=== PATIENT | female | born 1930 | race Caucasian/White ===

== ENCOUNTER 2018-10-19 16:38 | Inpatient (IN) ==
[2018-10-19] MEDS ORDERED: NS 1000 ML 1,000 ML IV SCH (19:51)
[2018-10-19 20:06] VITALS: BMI 32.2
[2018-10-19 20:21] LABS: BASOPHILS # (AUTO) 0.1 X10^3/uL (0.0-0.1); BASOPHILS % (AUTO) 0.9 % (0.2-1.0); EOSINOPHILS # (AUTO) 0.2 x10^3/uL (0.0-0.2); EOSINOPHILS % (AUTO) 2.5 % (0.9-2.9); HEMATOCRIT 30.1 % (36.0-47.0); HEMOGLOBIN 10.1 g/dL (12.0-16.0); LYMPHOCYTES # (AUTO) 1.6 X10^3/uL (1.3-2.9); LYMPHOCYTES % (AUTO) 23.8 % (21.0-51.0); MEAN CORPUSCULAR HEMOGLOBIN 31.5 pg (27.0-34.0); MEAN CORPUSCULAR HGB CONC 33.8 g/dL (33.0-35.0); MEAN CORPUSCULAR VOLUME 93.2 fL (80.0-100.0); MEAN PLATELET VOLUME 7.5 fL (7.4-11.0); MONOCYTES # (AUTO) 0.6 x10^3/uL (0.3-0.8); NEUTROPHILS # (AUTO) 4.3 x10^3/uL (2.2-4.8); NEUTROPHILS % (AUTO) 63.8 % (42.0-75.0); PLATELET COUNT 246 X10^3/uL (150.0-450.0); RED BLOOD COUNT 3.22 X10^6/uL (3.5-5.4); RED CELL DISTRIBUTION WIDTH 14.1 % (11.6-16.5); WHITE BLOOD COUNT 6.7 X10^3/uL (3.6-10.0)
[2018-10-19] MEDS: ROCEPHIN VIAL 1 GRAM IVP SCH (20:21)
[2018-10-19 20:35] LABS: ALANINE AMINOTRANSFERASE 19 Units/L (12-78); ALKALINE PHOSPHATASE 67 Units/L (46-116); ASPARTATE AMINO TRANSFERASE 17 Units/L (15-37); BLOOD UREA NITROGEN 16 mg/dL (7-18); CALCIUM 7.8 mg/dL (8.5-10.1); CARBON DIOXIDE 29.6 mmol/L (21-32); CHLORIDE 106 mmol/L (98-107); COR CA(FOR HYPOALB) 8.6 mg/dL (8.5-10.1); COR NA(FOR HYPERGLY) 142 mmol/L (136-145); CREATININE 0.91 mg/dL (0.55-1.02); SODIUM 142 mmol/L (136-145); TOTAL PROTEIN 5.8 g/dL (6.4-8.2); eGFR NON BLACK RACES > 60 (>60)
[2018-10-19] MEDS ORDERED: K-DUR TAB 20 MEQ PO PRN (21:04)
[2018-10-19] MEDS ORDERED: KLOR-CON PO PRN (21:04)
[2018-10-19] MEDS ORDERED: POTASSIUM CHL 40 MEQ/NS 0.45% 500 ML IV PRN (21:04)
[2018-10-19] MEDS ORDERED: K-RIDER 10 MEQ/NS 100 ML 10 MEQ/100 ML BAG IV PRN (21:04)
[2018-10-19] MEDS ORDERED: POTASSIUM CHL 60 MEQ/NS 0.45% 500 ML IV PRN (21:04)
[2018-10-19] MEDS ORDERED: MAGNESIUM SULFATE 1 GRAM/100 mL PREMIX 1 GM/100 ML BAG IV PRN (21:04)
[2018-10-19] MEDS ORDERED: MICRO K EXTEN CAP 10 MEQ PO PRN (21:04)
[2018-10-19] MEDS ORDERED: LEXAPRO ONE (22:31)
[2018-10-19] MEDS: LEXAPRO PO SCH (22:34)
[2018-10-19] MEDS: ARICEPT TAB 10 MG PO SCH (22:34)
[2018-10-19] MEDS: TUMS PO SCH (22:35)
[2018-10-19] MEDS: NAMENDA TAB 10 MG PO SCH (22:35)
[2018-10-19 23:47] LABS: BILIRUBIN,URINE NEGATIVE (NEGATIVE); BLOOD/HEMOGLOBIN,URINE NEGATIVE (NEGATIVE); GLUCOSE, URINE NEGATIVE (NEGATIVE); KETONES,URINE NEGATIVE (NEGATIVE); LEUKOCYTE ESTERASE ,URINE 1+ (NEGATIVE); NITRITES,URINE NEGATIVE (NEGATIVE); PROTEIN,URINE NEGATIVE (NEGATIVE); UROBILINOGEN,URINE NORMAL (NORMAL)
[2018-10-19 23:51] LABS: AMORPHOUS SEDIMENT,UR 1+ /HPF (NEGATIVE); APPEARANCE,URINE CLEAR (CLEAR); BACTERIA,URINE NEGATIVE /HPF (NEGATIVE); COLOR,URINE PALE YELLOW (YELLOW); RBC,URINE NONE SEEN /HPF (NONE SEEN); SQUAMOUS EPITHELIAL CELL,UR RARE /HPF (NEGATIVE)
[2018-10-20 05:53] LABS: BASOPHILS # (AUTO) 0.1 X10^3/uL (0.0-0.1); BASOPHILS % (AUTO) 1.4 % (0.2-1.0); EOSINOPHILS # (AUTO) 0.2 x10^3/uL (0.0-0.2); EOSINOPHILS % (AUTO) 3.3 % (0.9-2.9); HEMATOCRIT 29.8 % (36.0-47.0); HEMOGLOBIN 10.2 g/dL (12.0-16.0); LYMPHOCYTES # (AUTO) 1.8 X10^3/uL (1.3-2.9); LYMPHOCYTES % (AUTO) 27.7 % (21.0-51.0); MEAN CORPUSCULAR HEMOGLOBIN 31.7 pg (27.0-34.0); MEAN CORPUSCULAR HGB CONC 34.3 g/dL (33.0-35.0); MEAN CORPUSCULAR VOLUME 92.3 fL (80.0-100.0); MEAN PLATELET VOLUME 7.7 fL (7.4-11.0); MONOCYTES # (AUTO) 0.6 x10^3/uL (0.3-0.8); MONOCYTES % (AUTO) 10.1 % (0.0-13.0); NEUTROPHILS # (AUTO) 3.7 x10^3/uL (2.2-4.8); NEUTROPHILS % (AUTO) 57.5 % (42.0-75.0); PLATELET COUNT 231 X10^3/uL (150.0-450.0); RED BLOOD COUNT 3.23 X10^6/uL (3.5-5.4); WHITE BLOOD COUNT 6.4 X10^3/uL (3.6-10.0)
[2018-10-20 06:23] LABS: ALANINE AMINOTRANSFERASE 19 Units/L (12-78); ALBUMIN 2.8 g/dL (3.4-5.0); ALKALINE PHOSPHATASE 59 Units/L (46-116); ASPARTATE AMINO TRANSFERASE 16 Units/L (15-37); BLOOD UREA NITROGEN 13 mg/dL (7-18); CALCIUM 7.8 mg/dL (8.5-10.1); CARBON DIOXIDE 29.2 mmol/L (21-32); CHLORIDE 109 mmol/L (98-107); COR CA(FOR HYPOALB) 8.8 mg/dL (8.5-10.1); CREATININE 0.77 mg/dL (0.55-1.02); SODIUM 146 mmol/L (136-145); TOTAL PROTEIN 5.6 g/dL (6.4-8.2); eGFR NON BLACK RACES > 60 (>60)
[2018-10-20] MEDS: POTASSIUM CHLORIDE LIQ 20 MEQ UDC PO PRN ×2 (06:32→08:41)
--- NOTE | 2018-10-20 08:29 | DR.H&P ---
H&P - History & Physical for Day of: H&P Date: 10/19/18 - Chief Complaint Chief Complaint: ABDOMINAL PAIN, WEAKNESS, AMS - History of Present Illness History of Present Illness: IS A 88 YEAR OLD PATIENT OF OURS WHO IS CURRENTLY A RESIDENT OF [facility]. SHE PRESENTED TO THE OFFICE TODAY WITH COMPLAINTS OF LOWER ABDOMINAL PAIN, WEAKNESS, AND FAMILY REPORTING ALTERED MENTAL STATUS. PATIENT WAS APPARENTLY DIAGNOSED WITH A URINARY TRACT INFECTION ONE WEEK AGO AND HAS BEEN TREATED WITH CIPRO 500MG PO BID X 1 WEEK WITH NO IMPROVEMENT IN SYMPTOMS. SHE WAS ADMITTED TO THE HOSPITAL FOR FURTHER EVALUATION AND TREAMTMENT OF UTI, ALTERED MENTAL STATUS, AND WEAKNESS. ON ADMISSION, VITALS WERE 98.3-53-18-95%-135/62. LABS WERE OBTAINED. ABNORMAL LAB VALUES INCLUDE THE FOLLOWING: RBC 3.22, HGB 10.1, HCT 30.1, GLUCOSE 111, CALCIUM 7.8, TOTAL PROTEIN 5.8, ALBUMIN 3.0. URINALYSIS REVEALED WBC 0-2, BACTERIA TRACE, LEUKOCYTES 1+. SHE WAS STARTED ON NORMAL SALINE AT 80ML/HR AND ROCEPHIN 1GM IV DAILY. WE WILL HAVE PHYSICAL THERAPY ASSESS PATIENT. OTHERWISE, WE WILL FOLLOW UP WITH AM LABS AND CONTINUE TO MONITOR PATIENT. - Past Medical History Past Medical History: CHF, Dementia, GERD, Hypertension - Past Surgical History Surgical History: , Cholecystectomy, Ortho Surgery - Social History Alcohol Use: None Drug Use: None - Medications Home Medications: No Known Drug Allergies Allergy (Verified 10/19/18 19:52) CONTINUE taking the following medications alendronate [Fosamax] 1 tab PO QWEEK 10/19/18 [History] calcium carbonate [Calcium 500] 500 tab PO BID 10/19/18 [History] donepezil [Aricept] 1 tab PO HS 10/19/18 [History] escitalopram oxalate [Lexapro] 1 tab PO HS 10/19/18 [History] lisinopril [Zestril] 1 tab PO DAILY 10/19/18 [History] memantine [Namenda] 10 mg PO BID 10/19/18 [History] multivitamin [Multiple Vitamins] 1 tab PO QDAY 10/19/18 [History] omeprazole 20 mg PO QDAY 10/19/18 [History] risperidone 0.25 mg PO BID 10/19/18 [History] - Review of Systems Constitutional: See HPI, Weakness Eyes: No Symptoms Reported ENT: No Symptoms Reported Respiratory: No Symptoms Reported Cardiovascular: No Symptoms Reported Gastrointestinal: Abdominal Pain Genitourinary: No Symptoms Reported Musculoskeletal: No Symptoms Reported Skin: No Symptoms Reported Neurological: Weakness, Confusion - Physical Exam Vital Signs: Temperature 98.3 F Pulse Rate [Left Radial] 119 Respiratory Rate 20 Blood Pressure [Right Arm] 118/61 O2 Sat by Pulse Oximetry 96 Oriented: Not Oriented Eyes: Normal Ear: Normal Nose: Normal Throat: Normal Respiratory: Diminished Throughout Cardiovascular: Normal. negative: S3, S4, Murmur : Normal Auscultation: Bowel Sounds: Normal Palpation: Normal Tenderness: Suprapubic, Mild. negative: Rebound, Guarding, Rigidity Skin: Normal Musculoskeletal: Normal Psychiatric: Normal Mood Description: Calm Affect: Normal Speech Pattern: Clear, Inappropriate - Assessment/Plan (1) Urinary tract infection Qualifiers: Urinary tract infection type: acute cystitis Hematuria presence: without hematuria Qualified Code(s): N30.00 - Acute cystitis without hematuria Status: Acute Plan: ROCPEHIN 1GM IV DAILY, NORMAL SALINE AT 80ML/HR, CONTINUE TO MONITOR (2) Altered mental status Qualifiers: Altered mental status type: transient alteration of awareness Qualified Code(s): R40.4 - Transient alteration of awareness Status: Acute (3) Weakness Status: Acute Plan: PT EVALUATION, CONTINUE TO MONITOR - Allergies Allergies/Adverse Reactions: Allergies Allergy/AdvReac Type Severity Reaction Status Date / Time No Known Drug Allergies Allergy Verified 10/19/18 19:52
[2018-10-20] MEDS: ZESTRIL TAB 40 MG PO SCH (08:41)
[2018-10-20] MEDS: ROCEPHIN VIAL 1 GRAM IVP SCH (08:41)
[2018-10-20] MEDS: PriLOSEC PO SCH (08:41)
[2018-10-20] MEDS: TAB-A-VITE PO SCH (08:41)
[2018-10-20] MEDS: NAMENDA TAB 10 MG PO SCH ×2 (08:41→20:44)
[2018-10-20] MEDS: TUMS PO SCH ×2 (08:42→20:43)
[2018-10-20] MEDS: NORCO 5/325 MG TAB PO PRN (13:34)
[2018-10-20] MEDS ORDERED: LEXAPRO ONE (20:33)
[2018-10-20] MEDS: LEXAPRO PO SCH (20:44)
[2018-10-20] MEDS: ARICEPT TAB 10 MG PO SCH (20:44)
[2018-10-21 06:32] LABS: BASOPHILS % (AUTO) 0.6 % (0.2-1.0); EOSINOPHILS # (AUTO) 0.2 x10^3/uL (0.0-0.2); EOSINOPHILS % (AUTO) 3.1 % (0.9-2.9); HEMATOCRIT 29.4 % (36.0-47.0); LYMPHOCYTES # (AUTO) 1.6 X10^3/uL (1.3-2.9); LYMPHOCYTES % (AUTO) 24.7 % (21.0-51.0); MEAN CORPUSCULAR HEMOGLOBIN 31.7 pg (27.0-34.0); MEAN PLATELET VOLUME 8.6 fL (7.4-11.0); MONOCYTES # (AUTO) 0.7 x10^3/uL (0.3-0.8); MONOCYTES % (AUTO) 10.3 % (0.0-13.0); NEUTROPHILS % (AUTO) 61.3 % (42.0-75.0); PLATELET COUNT 225 X10^3/uL (150.0-450.0); RED BLOOD COUNT 3.16 X10^6/uL (3.5-5.4); RED CELL DISTRIBUTION WIDTH 13.8 % (11.6-16.5); WHITE BLOOD COUNT 6.5 X10^3/uL (3.6-10.0)
[2018-10-21 06:44] LABS: ALANINE AMINOTRANSFERASE 18 Units/L (12-78); ALBUMIN 2.8 g/dL (3.4-5.0); ALKALINE PHOSPHATASE 59 Units/L (46-116); ASPARTATE AMINO TRANSFERASE 15 Units/L (15-37); BLOOD UREA NITROGEN 16 mg/dL (7-18); CALCIUM 7.9 mg/dL (8.5-10.1); CARBON DIOXIDE 27.9 mmol/L (21-32); CHLORIDE 108 mmol/L (98-107); COR CA(FOR HYPOALB) 8.9 mg/dL (8.5-10.1); CREATININE 0.82 mg/dL (0.55-1.02); SODIUM 143 mmol/L (136-145); TOTAL PROTEIN 5.6 g/dL (6.4-8.2); eGFR NON BLACK RACES > 60 (>60)
--- NOTE | 2018-10-21 09:47 | PCM.PROG ---
Progress Note - Progress Note for Day of Date of Exam: 10/20/18 - Subjective Subjective: WAS ADMITTED ON 10/19/18 FOR ALTERED MENTAL STATUS, WEAKNESS, AND A URINARY TRACT INFECTION. TODAY, SHE IS SITTING UP IN BED ON MORNING ROUNDS. SHE IS NOT ORIENTED TO PERSON OR PLACE. PATIENT DOES HAVE A HISTORY OF DEMENTIA. ON EXAMINATION, HEART IS REGULAR IN RATE AND RHYTHM. BILATE RAL LUNGS ARE NOTED WITH DIMINISHED LUNG SOUNDS THROUGHOUT. ABDOMEN IS ROUND, SOFT, AND NOTED WITH SUPRAPUBIC TENDERNESS TO PALPATION. HER VITALS THIS MORNING ARE 98.3-69-20-96%-118/61. LABS WERE OBTAINED. ABNORMAL LAB VALUES INCLUDE THE FOLLOWING: RBC 3.23, HGB 10.2, HCT 29.8, SODIUM 146, POTASSIUM 3.4, CHLORIDE 109, CALCIUM 7.8, TOTAL PROTEIN 5.6, ALBUMIN 2.8. URINE CULTURE IS PENDING. SHE IS CURRENTLY RECEIVING NORMAL SALINE AT 80ML/HR WELL ROCEPHIN 1GM IV DAILY. TODAY, WE WILL REPLACE HER POTASSIUM PER THE PROTOCOL AND CONTINUE WITH TREATMENT FOR URINARY TRACT INFECTION. PHYSICAL THERAPY WILL WORK WITH PATIENT TODAY. OTHERWISE, WE WILL FOLLOW UP WITH AM LABS AND CONTINUE TO MONITOR. - Past Medical Family Social History Past Med/Fam/Surg Hx: No changes since H&P Allergies: Allergies No Known Drug Allergies Allergy (Verified 10/19/18 19:52) - Review of Systems ROS: No change since H&P - Vital Signs and I&O's Vital Signs: Temperature 98.4 F Pulse Rate [Left Radial] 72 Respiratory Rate 18 Blood Pressure [Right Arm] 175/79 O2 Sat by Pulse Oximetry 98 Intake and Output: Intake & Output 10/18/18 10/19/18 10/20/18 10/21/18 11:59 11:59 11:59 11:59 Intake Total 740 / 740 840 / 840 Output Total 180 / 180 Balance 560 / 560 840 / 840 - Physical Exam Oriented: Not Oriented Eyes: Normal Ear: Normal Nose: Normal Throat: Normal Cardiovascular: Normal. negative: S3, S4, Murmur : Normal Auscultation: Bowel Sounds: Normal Palpation: Normal Tenderness: Suprapubic, Mild. negative: Rebound, Guarding, Rigidity Skin: Normal Musculoskeletal: Normal Psychiatric: Normal Mood Description: Calm Affect: Normal Speech Pattern: Clear, Inappropriate - Laboratory and Diagnostics Result Diagrams: 10/21/18 05:25 10/21/18 05:25 Labs: 10/19/18 23:55 Urine,Clean Catch Urine Culture - Preliminary Laboratory WBC 6.5 X10^3/uL (3.6-10.0) 10/21/18 05:25 RBC 3.16 X10^6/uL (3.5-5.4) L 10/21/18 05:25 Hgb 10.0 g/dL (12.0-16.0) L 10/21/18 05:25 Hct 29.4 % (36.0-47.0) L 10/21/18 05:25 MCV 93.0 fL (80.0-100.0) 10/21/18 05:25 MCH 31.7 pg (27.0-34.0) 10/21/18 05:25 MCHC 34.0 g/dL (33.0-35.0) 10/21/18 05:25 RDW 13.8 % (11.6-16.5) 10/21/18 05:25 Plt Count 225 X10^3/uL (150.0-450.0) 10/21/18 05:25 MPV 8.6 fL (7.4-11.0) 10/21/18 05:25 Neut % (Auto) 61.3 % (42.0-75.0) 10/21/18 05:25 Lymph % (Auto) 24.7 % (21.0-51.0) 10/21/18 05:25 [place] % (Auto) 10.3 % (0.0-13.0) 10/21/18 05:25 Eos % (Auto) 3.1 % (0.9-2.9) H 10/21/18 05:25 Baso % (Auto) 0.6 % (0.2-1.0) 10/21/18 05:25 Neut # (Auto) 4.0 x10^3/uL (2.2-4.8) 10/21/18 05:25 Lymph # (Auto) 1.6 X10^3/uL (1.3-2.9) 10/21/18 05:25 [place] # (Auto) 0.7 x10^3/uL (0.3-0.8) 10/21/18 05:25 Eos # (Auto) 0.2 x10^3/uL (0.0-0.2) 10/21/18 05:25 Baso # (Auto) 0.0 X10^3/uL (0.0-0.1) 10/21/18 05:25 Absolute Nucleated RBC 0.1 /100WBC 10/21/18 05:25 Sodium 143 mmol/L (136-145) 10/21/18 05:25 Corrected Sodium TNP 10/21/18 05:25 Potassium 4.3 mmol/L (3.5-5.1) 10/21/18 05:25 Chloride 108 mmol/L (98-107) H 10/21/18 05:25 Carbon Dioxide 27.9 mmol/L (21-32) 10/21/18 05:25 BUN 16 mg/dL (7-18) 10/21/18 05:25 Creatinine 0.82 mg/dL (0.55-1.02) 10/21/18 05:25 Est GFR (MDRD) Af Amer > 60 (>60) 10/21/18 05:25 Est GFR (MDRD) Non-Af > 60 (>60) 10/21/18 05:25 Glucose 95 mg/dL (65-99) 10/21/18 05:25 Calcium 7.9 mg/dL (8.5-10.1) L 10/21/18 05:25 Corrected Calcium 8.9 mg/dL (8.5-10.1) 10/21/18 05:25 Magnesium 1.8 mg/dL (1.7-2.9) 10/19/18 20:13 Total Bilirubin 0.20 mg/dL (0.2-1.0) 10/21/18 05:25 AST 15 Units/L (15-37) 10/21/18 05:25 ALT 18 Units/L (12-78) 10/21/18 05:25 Alkaline Phosphatase 59 Units/L (46-116) 10/21/18 05:25 Total Protein 5.6 g/dL (6.4-8.2) L 10/21/18 05:25 Albumin 2.8 g/dL (3.4-5.0) L 10/21/18 05:25 Globulin 2.8 g/dL (2.5-4.5) 10/21/18 05:25 Albumin/Globulin Ratio 1.0 Ratio (1.1-2.1) L 10/21/18 05:25 Specimen Type Catherized urine 10/19/18 23:32 Urine Color Pale yellow (YELLOW) 10/19/18 23:32 Urine Appearance Clear (CLEAR) 10/19/18 23:32 Urine pH 7.0 (5.0 - 8.0) 10/19/18 23:32 Ur Specific [place] 1.005 (1.000-1.030) 10/19/18 23:32 Urine Protein Negative (NEGATIVE) 10/19/18 23:32 Urine Glucose (UA) Negative (NEGATIVE) 10/19/18 23:32 Urine Ketones Negative (NEGATIVE) 10/19/18 23:32 Urine Occult Blood Negative (NEGATIVE) 10/19/18 23:32 Urine Nitrite Negative (NEGATIVE) 10/19/18 23:32 Urine Bilirubin Negative (NEGATIVE) 10/19/18 23:32 Urine Urobilinogen Normal (NORMAL) 10/19/18 23:32 Ur Leukocyte Esterase 1+ (NEGATIVE) 10/19/18 23:32 Urine RBC None seen /HPF (NONE SEEN) 10/19/18 23:32 Urine WBC 0-2 /HPF (NONE SEEN) 10/19/18 23:32 Ur Squamous Epith Cells Rare /HPF (NEGATIVE) 10/19/18 23:32 Amorphous Sediment 1+ /HPF (NEGATIVE) 10/19/18 23:32 Urine Bacteria Negative /HPF (NEGATIVE) 10/19/18 23:32 Ur Culture Indicated? Yes/culture set up 10/19/18 23:32 - Plan (1) Urinary tract infection Status: Acute Qualifiers: Urinary tract infection type: acute cystitis Hematuria presence: without hematuria Qualified Code(s): N30.00 - Acute cystitis without hematuria Plan: ROCPEHIN 1GM IV DAILY, NORMAL SALINE AT 80ML/HR, CONTINUE TO MONITOR (2) Altered mental status Status: Acute Qualifiers: Altered mental status type: transient alteration of awareness Qualified Code(s): R40.4 - Transient alteration of awareness (3) Weakness Status: Acute Plan: PT EVALUATION, CONTINUE TO MONITOR (4) Hypokalemia Status: Acute Plan: POTASSIUM REPLACEMENT PER PROTOCOL, CONTINUE TO MONITOR
--- NOTE | 2018-10-21 09:50 | PCM.PROG ---
Progress Note - Progress Note for Day of Date of Exam: 10/21/18 - Subjective Subjective: WAS ADMITTED ON 10/19/18 FOR ALTERED MENTAL STATUS, WEAKNESS, AND A URINARY TRACT INFECTION. TODAY, SHE IS LYING IN BED ON MORNING ROUNDS. SHE CONTINUES TO BE DISORIENTED, BUT IS PLEASANT. ON EXAMINATION, HEART IS REGULAR IN RATE AND RHYTHM. BILATERAL LUNGS ARE NOTED WITH DIMINISHED LUNG SOUNDS THROUGHOUT. ABDOMEN IS ROUND, SOFT, AND NOTED WITH SUPRAPUBIC TENDERNESS TO PALPATION. HER VITALS THIS MORNING ARE 98.4-72-18-98%-175/79. LABS WERE OBTAINED. ABNORMAL LAB VALUES INCLUDE THE FOLLOWING: RBC 3.16, HGB 10.0, HCT 29.4, CHLORIDE 108, CALCIUM 7.9, TOTAL PROTEIN 5.6, ALBUMIN 2.8. URINE CULTURE IS PENDING. SHE IS CURRENTLY RECEIVING NORMAL SALINE AT 80ML/HR WELL ROCEPHIN 1GM IV DAILY. TODAY, WE WILL CONTINUE WITH TREATMENT FOR URINARY TRACT INFECTION. PHYSICAL THERAPY WILL CONTINUE TO WORK WITH PATIENT TODAY. OTHERWISE, WE WILL FOLLOW UP WITH AM LABS AND CONTINUE TO MONITOR. - Past Medical Family Social History Past Med/Fam/Surg Hx: No changes since H&P Allergies: Allergies No Known Drug Allergies Allergy (Verified 10/19/18 19:52) - Review of Systems ROS: No change since H&P - Vital Signs and I&O's Vital Signs: Temperature 98.4 F Pulse Rate [Left Radial] 72 Respiratory Rate 18 Blood Pressure [Right Arm] 175/79 O2 Sat by Pulse Oximetry 98 Intake and Output: Intake & Output 10/18/18 10/19/18 10/20/18 10/21/18 11:59 11:59 11:59 11:59 Intake Total 740 / 740 840 / 840 Output Total 180 / 180 Balance 560 / 560 840 / 840 - Physical Exam Oriented: Not Oriented Eyes: Normal Ear: Normal Nose: Normal Throat: Normal Respiratory: Generalized, Diminished Cardiovascular: Normal. negative: S3, S4, Murmur : Normal Auscultation: Bowel Sounds: Normal Palpation: Normal Tenderness: Suprapubic, Mild. negative: Rebound, Guarding, Rigidity Skin: Normal Musculoskeletal: Normal Psychiatric: Normal Mood Description: Calm Affect: Normal Speech Pattern: Clear, Inappropriate - Laboratory and Diagnostics Result Diagrams: 10/21/18 05:25 10/21/18 05:25 Labs: 10/19/18 23:55 Urine,Clean Catch Urine Culture - Preliminary Laboratory WBC 6.5 X10^3/uL (3.6-10.0) 10/21/18 05:25 RBC 3.16 X10^6/uL (3.5-5.4) L 10/21/18 05:25 Hgb 10.0 g/dL (12.0-16.0) L 10/21/18 05:25 Hct 29.4 % (36.0-47.0) L 10/21/18 05:25 MCV 93.0 fL (80.0-100.0) 10/21/18 05:25 MCH 31.7 pg (27.0-34.0) 10/21/18 05:25 MCHC 34.0 g/dL (33.0-35.0) 10/21/18 05:25 RDW 13.8 % (11.6-16.5) 10/21/18 05:25 Plt Count 225 X10^3/uL (150.0-450.0) 10/21/18 05:25 MPV 8.6 fL (7.4-11.0) 10/21/18 05:25 Neut % (Auto) 61.3 % (42.0-75.0) 10/21/18 05:25 Lymph % (Auto) 24.7 % (21.0-51.0) 10/21/18 05:25 [place] % (Auto) 10.3 % (0.0-13.0) 10/21/18 05:25 Eos % (Auto) 3.1 % (0.9-2.9) H 10/21/18 05:25 Baso % (Auto) 0.6 % (0.2-1.0) 10/21/18 05:25 Neut # (Auto) 4.0 x10^3/uL (2.2-4.8) 10/21/18 05:25 Lymph # (Auto) 1.6 X10^3/uL (1.3-2.9) 10/21/18 05:25 [place] # (Auto) 0.7 x10^3/uL (0.3-0.8) 10/21/18 05:25 Eos # (Auto) 0.2 x10^3/uL (0.0-0.2) 10/21/18 05:25 Baso # (Auto) 0.0 X10^3/uL (0.0-0.1) 10/21/18 05:25 Absolute Nucleated RBC 0.1 /100WBC 10/21/18 05:25 Sodium 143 mmol/L (136-145) 10/21/18 05:25 Corrected Sodium TNP 10/21/18 05:25 Potassium 4.3 mmol/L (3.5-5.1) 10/21/18 05:25 Chloride 108 mmol/L (98-107) H 10/21/18 05:25 Carbon Dioxide 27.9 mmol/L (21-32) 10/21/18 05:25 BUN 16 mg/dL (7-18) 10/21/18 05:25 Creatinine 0.82 mg/dL (0.55-1.02) 10/21/18 05:25 Est GFR (MDRD) Af Amer > 60 (>60) 10/21/18 05:25 Est GFR (MDRD) Non-Af > 60 (>60) 10/21/18 05:25 Glucose 95 mg/dL (65-99) 10/21/18 05:25 Calcium 7.9 mg/dL (8.5-10.1) L 10/21/18 05:25 Corrected Calcium 8.9 mg/dL (8.5-10.1) 10/21/18 05:25 Magnesium 1.8 mg/dL (1.7-2.9) 10/19/18 20:13 Total Bilirubin 0.20 mg/dL (0.2-1.0) 10/21/18 05:25 AST 15 Units/L (15-37) 10/21/18 05:25 ALT 18 Units/L (12-78) 10/21/18 05:25 Alkaline Phosphatase 59 Units/L (46-116) 10/21/18 05:25 Total Protein 5.6 g/dL (6.4-8.2) L 10/21/18 05:25 Albumin 2.8 g/dL (3.4-5.0) L 10/21/18 05:25 Globulin 2.8 g/dL (2.5-4.5) 10/21/18 05:25 Albumin/Globulin Ratio 1.0 Ratio (1.1-2.1) L 10/21/18 05:25 Specimen Type Catherized urine 10/19/18 23:32 Urine Color Pale yellow (YELLOW) 10/19/18 23:32 Urine Appearance Clear (CLEAR) 10/19/18 23:32 Urine pH 7.0 (5.0 - 8.0) 10/19/18 23:32 Ur Specific [place] 1.005 (1.000-1.030) 10/19/18 23:32 Urine Protein Negative (NEGATIVE) 10/19/18 23:32 Urine Glucose (UA) Negative (NEGATIVE) 10/19/18 23:32 Urine Ketones Negative (NEGATIVE) 10/19/18 23:32 Urine Occult Blood Negative (NEGATIVE) 10/19/18 23:32 Urine Nitrite Negative (NEGATIVE) 10/19/18 23:32 Urine Bilirubin Negative (NEGATIVE) 10/19/18 23:32 Urine Urobilinogen Normal (NORMAL) 10/19/18 23:32 Ur Leukocyte Esterase 1+ (NEGATIVE) 10/19/18 23:32 Urine RBC None seen /HPF (NONE SEEN) 10/19/18 23:32 Urine WBC 0-2 /HPF (NONE SEEN) 10/19/18 23:32 Ur Squamous Epith Cells Rare /HPF (NEGATIVE) 10/19/18 23:32 Amorphous Sediment 1+ /HPF (NEGATIVE) 10/19/18 23:32 Urine Bacteria Negative /HPF (NEGATIVE) 10/19/18 23:32 Ur Culture Indicated? Yes/culture set up 10/19/18 23:32 - Plan (1) Urinary tract infection Status: Acute Qualifiers: Urinary tract infection type: acute cystitis Hematuria presence: without hematuria Qualified Code(s): N30.00 - Acute cystitis without hematuria Plan: ROCPEHIN 1GM IV DAILY, NORMAL SALINE AT 80ML/HR, CONTINUE TO MONITOR (2) Altered mental status Status: Acute Qualifiers: Altered mental status type: transient alteration of awareness Qualified Code(s): R40.4 - Transient alteration of awareness (3) Weakness Status: Acute Plan: PT EVALUATION, CONTINUE TO MONITOR (4) Hypokalemia Status: Acute Plan: POTASSIUM REPLACEMENT PER PROTOCOL, CONTINUE TO MONITOR
[2018-10-21] MEDS: TAB-A-VITE PO SCH (10:13)
[2018-10-21] MEDS: NAMENDA TAB 10 MG PO SCH ×2 (10:13→20:58)
[2018-10-21] MEDS: PriLOSEC PO SCH (10:13)
[2018-10-21] MEDS: TUMS PO SCH ×2 (10:14→20:58)
[2018-10-21] MEDS: ROCEPHIN VIAL 1 GRAM IVP SCH (10:14)
[2018-10-21] MEDS: ZESTRIL TAB 40 MG PO SCH (10:15)
[2018-10-21] MEDS: NORCO 5/325 MG TAB PO PRN (11:20)
[2018-10-21] MEDS: LOVENOX INJ 40 MG SYR SC SCH (14:42)
[2018-10-21] MEDS ORDERED: LEXAPRO ONE (20:34)
[2018-10-21] MEDS: LEXAPRO PO SCH (20:57)
[2018-10-21] MEDS: ARICEPT TAB 10 MG PO SCH (21:08)
[2018-10-22 06:07] LABS: BASOPHILS # (AUTO) 0.1 X10^3/uL (0.0-0.1); BASOPHILS % (AUTO) 2.2 % (0.2-1.0); EOSINOPHILS # (AUTO) 0.2 x10^3/uL (0.0-0.2); HEMATOCRIT 31.3 % (36.0-47.0); HEMOGLOBIN 10.6 g/dL (12.0-16.0); LYMPHOCYTES # (AUTO) 1.2 X10^3/uL (1.3-2.9); LYMPHOCYTES % (AUTO) 24.2 % (21.0-51.0); MEAN CORPUSCULAR HEMOGLOBIN 31.4 pg (27.0-34.0); MEAN CORPUSCULAR HGB CONC 33.8 g/dL (33.0-35.0); MEAN CORPUSCULAR VOLUME 92.7 fL (80.0-100.0); MONOCYTES # (AUTO) 0.5 x10^3/uL (0.3-0.8); NEUTROPHILS # (AUTO) 3.1 x10^3/uL (2.2-4.8); NEUTROPHILS % (AUTO) 60.6 % (42.0-75.0); PLATELET COUNT 255 X10^3/uL (150.0-450.0); RED BLOOD COUNT 3.38 X10^6/uL (3.5-5.4); RED CELL DISTRIBUTION WIDTH 13.9 % (11.6-16.5); WHITE BLOOD COUNT 5.1 X10^3/uL (3.6-10.0)
[2018-10-22 06:09] LABS: ALANINE AMINOTRANSFERASE 18 Units/L (12-78); ALBUMIN 3.2 g/dL (3.4-5.0); ALKALINE PHOSPHATASE 65 Units/L (46-116); ASPARTATE AMINO TRANSFERASE 15 Units/L (15-37); BLOOD UREA NITROGEN 15 mg/dL (7-18); CALCIUM 8.2 mg/dL (8.5-10.1); CARBON DIOXIDE 28.6 mmol/L (21-32); CHLORIDE 106 mmol/L (98-107); COR CA(FOR HYPOALB) 8.8 mg/dL (8.5-10.1); CREATININE 0.84 mg/dL (0.55-1.02); SODIUM 143 mmol/L (136-145); TOTAL PROTEIN 6.3 g/dL (6.4-8.2); eGFR NON BLACK RACES > 60 (>60)
[2018-10-22] MEDS: NAMENDA TAB 10 MG PO SCH (09:20)
[2018-10-22] MEDS: PriLOSEC PO SCH (09:20)
[2018-10-22] MEDS: ZESTRIL TAB 40 MG PO SCH (09:20)
[2018-10-22] MEDS: TAB-A-VITE PO SCH (09:20)
[2018-10-22] MEDS: LOVENOX INJ 40 MG SYR SC SCH (09:21)
[2018-10-22] MEDS: TUMS PO SCH (09:21)
[2018-10-22] MEDS: ROCEPHIN VIAL 1 GRAM IVP SCH (09:58)
[2018-10-22 12:36] VITALS: BP 183/73
[2018-10-25] MEDS ORDERED: ALENDRONATE PO SCH (09:00)
--- NOTE | 2018-11-05 02:42 | DR.CARTERD ---
- Discharge Summary for: Discharge Summary for Date of:: 10/22/18 - Admission Date Date of Admission: 10/19/18 - Admission Diagnoses Admission Diagnosis: (1) Urinary tract infection (2) Altered mental status (3) Weakness - Discharge Date Discharge Date: 10/22/18 - Discharge Diagnoses Discharge Diagnosis: (1) Urinary tract infection (2) Altered mental status (3) Weakness - Hospital Course Hospital Course: DAY ONE, IS A 88 YEAR OLD PATIENT OF OURS WHO IS CURRENTLY A RESIDENT OF [facility]. SHE PRESENTED TO THE OFFICE TODAY WITH COMPLAINTS OF LOWER ABDOMINAL PAIN, WEAKNESS, AND FAMILY REPORTING ALTERED MENTAL STATUS. PATIENT WAS APPARENTLY DIAGNOSED WITH A URINARY TRACT INFECTION ONE WEEK AGO AND HAS BEEN TREATED WITH CIPRO 500MG PO BID X 1 WEEK WITH NO IMPROVEMENT IN SYMPTOMS. SHE WAS ADMITTED TO THE HOSPITAL FOR FURTHER EVALUATION AND TREAMTMENT OF UTI, ALTERED MENTAL STATUS, AND WEAKNESS. ON ADMISSION, VITALS WERE 98.3-53-18-95%-135/62. LABS WERE OBTAINED. ABNORMAL LAB VALUES INCLUDED THE FOLLOWING: RBC 3.22, HGB 10.1, HCT 30.1, GLUCOSE 111, CALCIUM 7.8, TOTAL PROTEIN 5.8, ALBUMIN 3.0. URINALYSIS REVEALED WBC 0-2, BACTERIA TRACE, LEUKOCYTES 1+. SHE WAS STARTED ON NORMAL SALINE AT 80ML/HR AND ROCEPHIN 1GM IV DAILY. WE HAD PHYSICAL THERAPY ASSESS PATIENT. WE FOLLOWED UP WITH AM LABS AND CONTINUED TO MONITOR PATIENT. DAY TWO, SHE WAS SITTING UP IN BED ON MORNING ROUNDS. SHE WAS NOT ORIENTED TO PERSON OR PLACE. PATIENT DOES HAVE A HISTORY OF DEMENTIA. ON EXAMINATION, HEART WAS REGULAR IN RATE AND RHYTHM. BILATERAL LUNGS WERE NOTED WITH DIMINISHED LUNG SOUNDS THROUGHOUT. ABDOMEN WAS ROUND, SOFT, AND NOTED WITH SUPRAPUBIC TENDERNESS TO PALPATION. HER VITALS THIS MORNING WERE 98.3-69-20-96%-118/61. LABS WERE OBTAINED. ABNORMAL LAB VALUES INCLUDED THE FOLLOWING: RBC 3.23, HGB 10.2, HCT 29.8, SODIUM 146, POTASSIUM 3.4, CHLORIDE 109, CALCIUM 7.8, TOTAL PROTEIN 5.6, ALBUMIN 2.8. URINE CULTURE WAS PENDING. SHE WAS RECEIVING NORMAL SALINE AT 80ML/HR WELL ROCEPHIN 1GM IV DAILY. WE REPLACED HER POTASSIUM PER THE PROTOCOL AND CONTINUED WITH TREATMENT FOR URINARY TRACT INFECTION. PHYSICAL THERAPY WORKED WITH PATIENT TODAY. WE FOLLOWED UP WITH AM LABS AND CONTINUED TO MONITOR. DAY THREE, SHE WAS LYING IN BED ON MORNING ROUNDS. SHE CONTINUED TO BE DISORIENTED, BUT WAS PLEASANT. ON EXAMINATION, HEART WAS REGULAR IN RATE AND RHYTHM. BILATERAL LUNGS WERE NOTED WITH DIMINISHED LUNG SOUNDS THROUGHOUT. ABDOMEN WAS ROUND, SOFT, AND NOTED WITH SUPRAPUBIC TENDERNESS TO PALPATION. HER VITALS THIS MORNING WERE 98.4-72-18-98%-175/79. LABS WERE OBTAINED. ABNORMAL LAB VALUES INCLUDED THE FOLLOWING: RBC 3.16, HGB 10.0, HCT 29.4, CHLORIDE 108, CALCIUM 7.9, TOTAL PROTEIN 5.6, ALBUMIN 2.8. URINE CULTURE IS PENDING. SHE WAS RECEIVING NORMAL SALINE AT 80ML/HR WELL ROCEPHIN 1GM IV DAILY. WE CONTINUED WITH TREATMENT FOR URINARY TRACT INFECTION. PHYSICAL THERAPY CONTINUED TO WORK WITH PATIENT TODAY. WE FOLLOWED UP WITH AM LABS AND CONTINUED TO MONITOR. DAY FOUR, PATIENT SITTING UP IN BED. SHE CONTINUED WITH CONFUSION, BUT WAS PLEASENT. WE BELIEVE THIS TO BE RELATED TO HER DEMENTIA. LABS WERE WITHIN NORMAL RANGE FOR PATIENT. VITALS WERE STABLE. CASE MANAGEMENT HAS GOTTEN PATIENT PLACED AT [facility]. WE PLANNED FOR DISCHARGE. INSTRUCTIONS FOR MEDICATIONS AND FOLLOW UP WERE DISCUSSED WITH PATIENT, FAMILY, AND [facility], ALL VOICED UNDERSTANDING. PATIENT WAS DISCHARGED TO [facility] IN STABLE CONDITION WITH EMS PERSONNEL. - Discharge Medications Discharge Medications: Home Medication List alendronate [Fosamax] 1 tab PO QWEEK 10/19/18 [History] calcium carbonate [Calcium 500] 500 tab PO BID 10/19/18 [History] donepezil [Aricept] 1 tab PO HS 10/19/18 [History] escitalopram oxalate [Lexapro] 1 tab PO HS 10/19/18 [History] lisinopril [Zestril] 1 tab PO DAILY 10/19/18 [History] memantine [Namenda] 10 mg PO BID 10/19/18 [History] multivitamin [Multiple Vitamins] 1 tab PO QDAY 10/19/18 [History] omeprazole 20 mg PO QDAY 10/19/18 [History] risperidone 0.25 mg PO BID 10/19/18 [History] hydrocodone-acetaminophen 1 tab PO Q6H PRN #120 tab 10/22/18 [Rx] Prescriptions: hydrocodone-acetaminophen Malik Evans - Discharge Disposition Discharge Disposition: PATIENT TO FOLLOW UP WITH HER PCP AT [facility] IN ONE WEEK.
== END 2018-10-22 13:30 | DRG 690 ==
LOC: MED/SURG 19:06
PROVIDERS: ADMIT Internal Medicine; ATTEND Internal Medicine
DX: E87.6 Hypokalemia; R26.89 Other abnormalities of gait and mobility; R41.82 Altered mental status, unspecified; R10.84 Generalized abdominal pain; N30.00 Acute cystitis without hematuria
CPT/HCPCS: 36415; 80053; 81001; 83735; 85025; 87086; 97116; 97162; 97166; 97530; 97535; A4216; J0696; J1650; J7030